=== PATIENT | male | born 1960 | race Caucasian/White ===

== ENCOUNTER 2021-03-18 21:44 | Emergency (ER) | payer MEDICARE, MEDICAID ==
--- NOTE | 2021-03-18 21:55 | EDM.PDOC ---
ED HPI GENERAL MEDICAL PROBLEM - General Chief Complaint: Behavioral/Psych Stated Complaint: Suicidal Attempt Time Seen by Provider: 03/18/21 21:55 Source of Information: Reports: Patient, EMS Notes Reviewed, [facility] Records History Limitations: Reports: Altered Mental Status, Combative/Threatening - History of Present Illness INITIAL COMMENTS - FREE TEXT/NARRATIVE: Shane, 60-year-old male, brought by [place] [facility] from [facility] in [place]. [facility] [place] and requiring medical screening was authorized to go to the [facility] Due to someone's interpretation of the system he had to be brought here as they could not take him there is a direct admit. He allegedly attempted suicide by plastic bag over his head of which the staff at difficulty removing. He is not cooperative to allow complete medical screening as he will not give us a urine sample that the screener through [facility] requiring. Is also noted that information is missing for the eighth regarding routine documentation, nursing cares and such.Which was sent to us via fax for review. Shane continues to state everything is black your black, I am black, and everything will be black. He is not fully cooperative to the suggestions and commands for the initial acceptance but he is not combative physically but maintains a verbal statement. Onset: Unknown/Unsure - Related Data Allergies Allergy/AdvReac Type Severity Reaction Status Date / Time No Known Allergies Allergy Verified 03/18/21 22:16 Past Medical History Cardiovascular History: Reports: High Cholesterol Gastrointestinal History: Reports: GERD Genitourinary History: Reports: Prostate Disorder, Renal Disease Psychiatric History: Reports: Antisocial Behaviors, Anxiety, Bipolar, Dementia, Schizophrenia, Suicide Attempt, Suicidal Ideation Endocrine/Metabolic History: Reports: Diabetes, Type II, Hypothyroidism Hematologic History: Reports: Anemia, B12 Deficiency ED ROS GENERAL - Review of Systems Review Of Systems: Comprehensive ROS is negative, except as noted in HPI. ED EXAM, GENERAL - Physical Exam Exam: See Below Free Text/Narrative:: Alert disoriented in psychological dismay. He continues stating your black on black everything is black everybody is black. HEENT is negative discharge or deformity. No icterus no injection. Neck soft supple no lymphadenopathy. Thorax is mildly diminished at the bases as he is not fully cooperative with a deep breath with no wheezing or crackles. Cardiac is regular with radial pulse correlating. Abdomen is soft bowel sounds are present no tenderness. No edema to the extremities. Limited examination secondary to lack of cooperation. #1 Interpretation EKG Date: 03/18/21 Time: 22:04 Rhythm: NSR Rate (Beats/Min): 99 P-Wave: Present QRS: RBBB ST-T: Depressed QT: Normal Comparison: NA - No Prior EKG Course - Vital Signs Last Recorded V/S: Last Vital Signs Temp 96.7 F L 03/19/21 00:00 Pulse 95 03/19/21 00:00 Resp 18 03/19/21 00:00 BP 160/90 H 03/19/21 00:00 Pulse Ox 97 03/19/21 00:00 - Orders/Labs/Meds Orders: Active Orders 24 hr Category Date Time Status DRUG SCREEN, URINE [URCHEM] Stat Lab 03/18/21 21:56 Ordered UA RFX BARBY AND CULT IF INDIC [URIN] Stat Lab 03/18/21 21:56 Ordered One To One Therapy [BH] Stat Oth 03/18/21 22:00 Ordered EKG 12 Lead [EK] Stat Ther 03/18/21 21:56 Ordered Labs: Laboratory Tests 03/18/21 03/18/21 03/18/21 Range/Units 22:00 22:00 22:00 WBC 6.94 (5.00-10.00) 10^3/uL RBC 4.17 L (4.50-6.00) 10^6/uL Hgb 11.1 L (13.0-17.0) g/dL Hct 34.0 L (40.0-52.0) % MCV 81.5 L (82.0-92.0) fL MCH 26.6 L (27.0-31.0) pg MCHC 32.6 (32.0-36.0) g/dL RDW 14.9 H (11.5-14.5) % Plt Count 219 (150-400) 10^3/uL MPV 9.9 (7.4-10.4) fL Immature Gran % (Auto) 0.0 (0.0-5.0) % Neut % (Auto) 72.6 H (50.0-70.0) % Lymph % (Auto) 16.0 L (20.0-40.0) % Hyde % (Auto) 11.0 H (2.0-8.0) % Eos % (Auto) 0.0 L (1.0-3.0) % Baso % (Auto) 0.4 (0.0-1.0) % Neut # (Auto) 5.04 (2.50-7.00) 10^3/uL Lymph # (Auto) 1.11 (1.00-4.00) 10^3/uL Hyde # (Auto) 0.76 (0.10-0.80) 10^3/uL Eos # (Auto) 0.00 L (0.10-0.30) 10^3/uL Baso # (Auto) 0.03 (0.00-0.10) 10^3/uL Immature Gran # (Auto) 0.00 (0.00-0.50) 10^3/uL Sodium 144 (136-145) mmol/L Potassium 3.9 (3.5-5.1) mmol/L Chloride 103 (98-107) mmol/L Carbon Dioxide 28.0 (21.0-32.0) mmol/L Anion Gap 16.9 H (5-15) mmol/L BUN 20 H (7-18) mg/dL Creatinine 1.18 H (0.51-1.17) mg/dL Est Cr Clr Drug Dosing 76.43 mL/min Estimated GFR (MDRD) > 60 mL/min Glucose 122 (70-140) mg/dL Calcium 8.5 L (8.7-10.3) mg/dL Total Bilirubin 0.5 (0.2-1.0) mg/dL AST 20 (15-37) U/L ALT 25 (14-63) U/L Alkaline Phosphatase 48 (46-116) U/L Troponin I High Sens 12.100 (0-76.000) pg/mL Total Protein 6.3 L (6.4-8.2) g/dL Albumin 3.68 (3.40-5.00) g/dL Ethyl Alcohol < 3 (0) mg/dL SARS CoV-2 RNA Rapid VIKI Negative (NEGATIVE) - Re-Assessments/Exams Free Text/Narrative Re-Assessment/Exam: 03/19/21 00:12 As we are unable to get urine for urinalysis and tox screen contact with Dr. Alysia Chow regarding the status. We [facility] a facility. Is unable to contact with Dr. Lee to get his acceptance. Originally the recommendation was for transport tomorrow morning but due to [facility] is not able to provide safety and staffing issues as well as our facility Dr. Chow recommended transport to occur this evening/morning. Departure - Departure Time of Disposition: 00:07 Disposition: DC/Tfer to [facility] 02 Condition: Fair Clinical Impression: Schizophrenia, Bipolar 1 disorder, COVID-19 ruled out by laboratory testing, Suicidal intent - Discharge Information *PRESCRIPTION DRUG MONITORING PROGRAM REVIEWED*: Not Applicable *COPY OF PRESCRIPTION DRUG MONITORING REPORT IN PATIENT NATASHA: Not Applicable Forms: ED Department Discharge, Interfacility Transfer EMTALA Additional Instructions: Dr Lee accepting at [facility] Sepsis Event Note (ED) - Focused Exam Vital Signs: Vital Signs Temp Pulse Resp BP Pulse Ox 03/19/21 00:00 96.7 F L 95 18 160/90 H 97 03/18/21 22:53 97 F 97 18 142/67 H 95 03/18/21 21:55 97.2 F 101 H 18 145/79 H 95 - Problem List & Annotations (1) Schizophrenia SNOMED Code(s): 82268249 Code(s): F20.9 - SCHIZOPHRENIA, UNSPECIFIED Status: Acute Priority: High (2) Bipolar 1 disorder SNOMED Code(s): 002134967 Code(s): F31.9 - BIPOLAR DISORDER, UNSPECIFIED Status: Acute Priority: High (3) Anemia SNOMED Code(s): 698103643 Code(s): D64.9 - ANEMIA, UNSPECIFIED Status: Acute Priority: Medium Qualifiers: Anemia type: iron deficiency (4) B12 deficiency SNOMED Code(s): 795815465 Code(s): E53.8 - DEFICIENCY OF OTHER SPECIFIED B GROUP VITAMINS Status: Acute Priority: Medium (5) Hypothyroid SNOMED Code(s): 86306875 Code(s): E03.9 - HYPOTHYROIDISM, UNSPECIFIED Status: Acute Priority: Medium Qualifiers: Hypothyroidism type: acquired Qualified Code(s): E03.9 - Hypothyroidism, unspecified (6) COVID-19 ruled out by laboratory testing SNOMED Code(s): 189447624243122966, 412236409438452200 Code(s): Z20.822 - CONTACT WITH AND (SUSPECTED) EXPOSURE TO COVID-19 Status: Acute (7) Suicidal intent SNOMED Code(s): 484930489, 556645935 Code(s): R45.851 - SUICIDAL IDEATIONS Status: Acute - Problem List Review Problem List Initiated/Reviewed/Updated: Yes - My Orders Last 24 Hours: My Active Orders 03/18/21 21:56 DRUG SCREEN, URINE [URCHEM] Stat UA RFX BARBY AND CULT IF INDIC [URIN] Stat EKG 12 Lead [EK] Stat 03/18/21 22:00 One To One Therapy [BH] Stat - Assessment/Plan Last 24 Hours: My Active Orders 03/18/21 21:56 DRUG SCREEN, URINE [URCHEM] Stat UA RFX BARBY AND CULT IF INDIC [URIN] Stat EKG 12 Lead [EK] Stat 03/18/21 22:00 One To One Therapy [] Stat Plan: Dr Lee accepting at [facility]
[2021-03-18 22:32] LABS: ANION GAP 16.9 mmol/L (5-15); CHLORIDE,CL 103 mmol/L (98-107); SODIUM,NA 144 mmol/L (136-145)
== END 2021-03-19 00:18 ==
LOC: KA.ED 21:44
DX: F20.9 Schizophrenia, unspecified (principal); F31.9 Bipolar disorder, unspecified; R45.851 Suicidal ideations; E11.9 Type 2 diabetes mellitus without complications; I45.10 Unspecified right bundle-branch block; Z20.822 Contact with and (suspected) exposure to COVID-19
CPT/HCPCS: 36415; 80053; 80307; 84484; 85025; 93005; 93010; 99284; 99285-25; U0002